=== PATIENT | female | born 1965 | race Two or more races ===

== ENCOUNTER 2017-10-08 06:26 | Emergency (ER) | payer OTHER ==
[~2017-10-08] VITALS: Ht 157.5 cm; Wt 85.3 kg
[~2017-10-08 06:26] MED LIST: CADUET 5 MG/101 TAB; GLUCOPHAGE XR500 MG; HCTZ/RESERPINE/1 TAB; TUSSIONEX PENNKI5 ML PO
== END 2017-10-08 16:43 | disposition home or self-care (01) ==
LOC: ER 06:26
DX: J40 Bronchitis, not specified as acute or chronic (principal); J11.1 Influenza due to unidentified influenza virus with other respiratory manifestations; R11.0 Nausea

== ENCOUNTER → 2017-10-16 | Emergency (ER) | payer OTHER ==
[~2017-10-16] VITALS: Ht 157.5 cm; Wt 86.2 kg
[~2017-10-16] MED LIST changes: +ALBUTEROL2.5 MG/3 M IH; +ALLEGRA ALLERGY60 MG PO; +HYZAAR 100-12.1 EACH PO; +LIPITOR20 MG PO; +MEDROLPACK PO; +TESSALON PERLE100 MG PO
== END | disposition home or self-care (01) ==
LOC: ER 06:29
DX: J06.9 Acute upper respiratory infection, unspecified (principal)

== ENCOUNTER 2018-10-25 12:29 | Emergency (ER) | payer OTHER ==
[~2018-10-25] VITALS: Ht 157.5 cm; Wt 87.1 kg
[2018-10-25] MEDS ORDERED: LOSARTAN-HCTZ1 EAC1 (13:14)
[2018-10-25] MEDS ORDERED: SINGULAIR10 MG (13:15)
== END 2018-10-25 18:34 | disposition home or self-care (01) ==
LOC: ER 12:29
DX: J45.998 Other asthma (principal)

== ENCOUNTER 2019-07-23 10:59 | Emergency (ER) | payer OTHER ==
[~2019-07-23] VITALS: Ht 157.5 cm; Wt 86.2 kg
[~2019-07-23 10:59] MED LIST changes: +LOSARTAN-HCTZ1 EAC1; +SINGULAIR10 MG
[2019-07-23] MEDS ORDERED: ALLEGRA ALLERG180 MG PO (11:11)
[2019-07-23] MEDS ORDERED: METFORMIN HCL500 M3 PO (11:11)
== END 2019-07-23 14:32 | disposition home or self-care (01) ==
LOC: ER 10:59
DX: J45.909 Unspecified asthma, uncomplicated (principal)

== ENCOUNTER 2020-09-22 07:21 | Outpatient (CLI) | payer OTHER ==
[~2020-09-22 07:21] MED LIST changes: +ALLEGRA ALLERG180 MG PO; +METFORMIN HCL500 M3 PO
== END 2020-09-22 07:40 | disposition home or self-care (01) ==
LOC: NUCLEAR 07:21
PROVIDERS: ATTEND Internal Medicine
DX: I25.10 Atherosclerotic heart disease of native coronary artery without angina pectoris (principal); I65.29 Occlusion and stenosis of unspecified carotid artery

== ENCOUNTER 2020-11-19 07:34 | Outpatient (CLI) | payer OTHER | END 2020-11-19 10:04 | disposition home or self-care (01) | LOC: NUCLEAR 07:34 | PROVIDERS: ATTEND Internal Medicine | DX: I25.10 Atherosclerotic heart disease of native coronary artery without angina pectoris (principal); I10 Essential (primary) hypertension; E78.00 Pure hypercholesterolemia, unspecified | CPT/HCPCS: 78452; 93017; A9500; J0153 ==

== ENCOUNTER 2022-10-26 07:32 | Outpatient (CLI) | payer OTHER | END 2022-10-26 07:34 | disposition home or self-care (01) | LOC: NUCLEAR 07:32 | PROVIDERS: ATTEND Internal Medicine | DX: I68.2 Cerebral arteritis in other diseases classified elsewhere (principal); I10 Essential (primary) hypertension; E11.9 Type 2 diabetes mellitus without complications; E78.00 Pure hypercholesterolemia, unspecified ==

== ENCOUNTER 2022-11-02 07:45 | Outpatient (CLI) | payer OTHER | END 2022-11-02 08:02 | disposition home or self-care (01) | LOC: MRI 07:45 | PROVIDERS: ATTEND Internal Medicine | DX: K55.059 Acute (reversible) ischemia of intestine, part and extent unspecified (principal) | CPT/HCPCS: 72198; 74185 ==

== ENCOUNTER 2022-11-02 08:52 | Outpatient (CLI) | payer OTHER | END 2022-11-02 08:53 | disposition home or self-care (01) | LOC: LAB 08:52 | PROVIDERS: ATTEND Radiology Diagnostic Radiology | DX: K55.059 Acute (reversible) ischemia of intestine, part and extent unspecified (principal) ==